=== PATIENT | male | born 1960 | race Caucasian/White ===

== ENCOUNTER 2018-01-31 09:54 | Emergency (ER) | payer MEDICAID ==
--- NOTE | 2018-01-31 10:52 | EDM.PDOC ---
ED HPI GENERAL MEDICAL PROBLEM - General Chief Complaint: Genitourinary Problem Stated Complaint: BLADDER ISSUES Time Seen by Provider: 01/31/18 10:20 - History of Present Illness INITIAL COMMENTS - FREE TEXT/NARRATIVE: HISTORY AND PHYSICAL: History of present illness: The patient is a 57-year-old male who presents with complaints of problems with his urine and urination on and off for the last one year but worse the last 2 weeks. The patient is very difficult to interview and in fact would not discuss any information with the triage nurse or his primary care nurse and insisted that he would only talk to the physician. The patient refused care by the PA and requested only an M.D. On My evaluation the patient is very repetitive offering information from one year ago when he says he had an MRI and ultrasound for urinary problems and then a subsequent cystoscopy for urinary problems--- he was told that he needed the cystoscopy because he might have bladder cancer. He said this all occurred in [place] on and from my frequent questioning of him it does not appear that he has a specific provider caring for him in [place] where he is from. He says he is here for work. The patient vacillated between saying he had the MRI didn't have the MRI but is very frustrated in talking about the events of the year ago because he does not feel that the urologist was appropriate and he does tell me that the cystoscopy was performed and that it was normal and he thinks that that procedure introduced an infection that he has had on-and-off over the last one year. He also tells me that over the last 2 weeks has been with his and he is concerned that she may be cheating on him because of her evasive behavior in the household and since the last 2 weeks he has noticed that his urine has a strange odor and he is concerned about that. He says over the last one year he has had intermittent episodes of hesitancy and trouble initiating a stream with his urine but he would not answer me when I asked about any prostate evaluation. The patient denies any fever chills abdominal pain and testicular pain or swelling nausea or vomiting and has no flank pain. He tells me he does have a history of small kidney stones that he passes "all the time" but he has no flank pain or hematuria. The patient denies any discharge from his penis when he is not urinating but that answer seemed to change 3 times on my questioning. Throughout all of my evaluation the patient seems very focused on events of a year ago and in controlling the conversation and the interview avoiding my questions and only answering what he chooses to. I kept trying to reassure him that I needed to ask these questions in order to evaluate him properly and he was initially states that he understands and then would again deviates into offering the information that is not in response to my questions. He has been eating and drinking normally and says that he has a work physical on Friday with a drug test and that he will be working in the area. From what I can gather from my conversation with him he is concerned about the foul-smelling of his urine hesitancy frequency of his urination and possibly of STD risks. Also says that he notices that his blood pressure is elevated and he is "freaking out" about that. He also tells me that he has been drinking an over -the-counter supplement called "keto fluid" as a body cleanser and he is not sure if that is causing any of his symptomatology because it may be high in sodium. Please see below for further information regarding his ED stay Review of systems: As per history of present illness and below otherwise all systems reviewed and negative. Past medical history: As per history of present illness and as reviewed below otherwise noncontributory. Surgical history: As per history of present illness and as reviewed below otherwise noncontributory. Social history: No reported history of drug or alcohol abuse. Family history: As per history of present illness and as reviewed below otherwise noncontributory. Physical exam: General: Well-developed well-nourished overweight man who is nontoxic and vital signs are reviewed by me. HEENT: Atraumatic, normocephalic, pupils reactive, negative for conjunctival pallor or scleral icterus, mucous membranes moist, throat clear, neck supple, nontender, trachea midline. Lungs: Clear to auscultation, breath sounds equal bilaterally, chest nontender. Heart: S1S2, regular rate and rhythm no overt murmurs Abdomen: Soft, nondistended, nontender. Obese male with rotund soft abdomen and slightly hypoactive bowel sounds Negative for masses or hepatosplenomegaly. Negative for costovertebral tenderness. Pelvis: Deferred Genitourinary: Deferred. Rectal: Deferred. Extremities: Atraumatic, full range of motion without defects or deficits. Neurovascular unremarkable. Neuro: Awake, alert, oriented. Cranial nerves II through XII unremarkable. Cerebellum unremarkable. Motor and sensory unremarkable throughout. Exam nonfocal. Back: There are no midline step-offs tenderness defects of the thoracic or lumbar spine no CVA tenderness as stated above Diagnostics: [] Therapeutics: [] During the course of my interview as I was speaking to the patient and then examining him, he mentioned at least 10 times that he has a brother in [facility] who is a benefits representative and I kept trying to reassure him that that was not relevant and that we needed to focus on his ED visit. At one point he again mentioned his brother and that he was told by his brother that I cannot share any of his information with my nursing staff or any other hospital personnel as that is a violation of confidentiality . When I tried to discuss with him that my staff needed to be involved in his care and needed to know his symptomatology and that other personnel such as the lab would be involved with his specimens and his testing and they needed to understand why we are doing these test he said that that was a violation of his rights and that I could not do that. He again mentioned that his brother was a benefits representative. He accused me of not protecting his rights and he called me a Narscisst . I asked him to refrain from judging me or calling me names as I would not be doing that in his care and that I wanted to help evaluate him and he sat up and said that "this ER visit is over". I told him that was his right to chose to leave without further evaluation but that we are willing to help him and he proceeded to elope from the ED. He subsequently has gone out to the motel front desk clerk asking for information about the hospital director and how to file a complaint and lawsuit. Nursing supervisor [employer] was made aware of this patient Impression: Urinary issues patient eloped prior to full evaluation Definitive disposition and diagnosis as appropriate pending reevaluation and review of above. "bladder" Pain Score (Numeric/FACES): 3 - Related Data Allergies Allergy/AdvReac Type Severity Reaction Status Date / Time No Known Allergies Allergy Verified 01/31/18 10:16 Home Meds: Home Meds . [No Known Home Meds] 01/31/18 [History] Past Medical History - Past Health History Medical/Surgical History: Denies Medical/Surgical History - Infectious Disease History Infectious Disease History: Reports: Chicken Pox Social & Family History - Family History Family Medical History: Noncontributory - Tobacco Use Smoking Status *Q: Never Smoker - Recreational Drug Use Recreational Drug Use: No ED ROS GENERAL - Review of Systems Review Of Systems: ROS reveals no pertinent complaints other than HPI. ED EXAM, GENERAL - Physical Exam Exam: See Below (See dictation) Course - Vital Signs Last Recorded V/S: Last Vital Signs Temp 35.3 C 01/31/18 10:10 Pulse 71 01/31/18 10:10 Resp 20 01/31/18 10:10 BP 188/119 H 01/31/18 10:18 Pulse Ox 97 01/31/18 10:10 Departure - Departure Time of Disposition: 10:52 Disposition: Eloped 07 Condition: Good Clinical Impression: Dysuria - Discharge Information Referrals: PCP,None [Primary Care Provider] - Forms: ED Department Discharge Additional Instructions: Patient eloped prior to full evaluation and discharge instructions
== END 2018-01-31 10:37 | disposition left against medical advice (07) ==
LOC: MW.ED 09:54
DX: R30.0 Dysuria (principal)
CPT/HCPCS: 99282